=== PATIENT | male | born 1950 | race Two or more races ===

== ENCOUNTER 2021-09-28 19:08 | Emergency (ER) | payer SELFPAY ==
[~2021-09-28] VITALS: Ht 172.7 cm; Wt 72.0 kg
[2021-09-28 19:59] VITALS: BP 121/78
[2021-09-28] MEDS: LIDOCAINE 2%/EPI 1:100,000 20 ML VIAL. INJ ONE (20:00)
[2021-09-28] MEDS: DIPHTH,PERTUSS(ACELL),TET TOX 0.5 ML DISP.SYRIN. VAX IM ONE (20:15)
--- NOTE | 2021-09-28 20:47 | PHYS DOC ---
Past Medical History Past Medical History: Cancer, High Cholesterol, Hypertension Past Surgical History: No Surgical History General Adult EDM: Chief Complaint: LACERATION/AVULSION HPI: HPI: Patient is a 71-year-old male who presents today with a laceration to his right ring finger. Patient states that around 130 this afternoon he was opening a can of dog food and the edge of the lid cut his finger, he said he bandaged it up and went on throughout his day, said he has had to change the dressing multiple times throughout the day because it continues to bleed. Patient presents today for further evaluation and management this because he cannot get the bleeding to stop. Patient denies taking any anticoagulation therapy. Patient states that he is unsure of when his last tetanus shot was. Review of Systems: Review of Systems: Constitutional: Denies fever or chills. [] Eyes: Denies change in visual acuity. [] HENT: Denies nasal congestion or sore throat. [] Respiratory: Denies cough or shortness of breath. [] Cardiovascular: Denies chest pain or edema. [] GI: Denies abdominal pain, nausea, vomiting, bloody stools or diarrhea. [] : Denies dysuria. [] Musculoskeletal: Denies back pain or joint pain. [] Integument: Laceration right fourth finger Neurologic: Denies headache, focal weakness or sensory changes. [] Endocrine: Denies polyuria or polydipsia. [] Lymphatic: Denies swollen glands. [] Psychiatric: Denies depression or anxiety. [] Heart Score: C/O Chest Pain: No Risk Factors: Risk Factors: DM, Current or recent (<one month) smoker, HTN, HLP, family history of CAD, obesity. Risk Scores: Score 0 - 3: 2.5% MACE over next 6 weeks - Discharge Home Score 4 - 6: 20.3% MACE over next 6 weeks - Admit for Clinical Observation Score 7 - 10: 72.7% MACE over next 6 weeks - Early Invasive Strategies Current Medications: Current Medications Medications (Trade) Dose Ordered Sig/Thierno Start Time Stop Time Status Last Admin Dose Admin Diphtheria/ Tetanus/Acell Pertussis (Boostrix) 0.5 ml ONCE ONCE 09/28/21 20:15 09/28/21 20:19 DC Lidocaine/ Epinephrine (LIDOCAINE 2%-EPI 1:100,000 multi-dose) 20 ml 1X ONCE 09/28/21 20:00 09/28/21 20:19 DC 09/28/21 20:00 20 ML Allergies: Allergies: Allergies Coded Allergies Type Severity Reaction Last Updated Verified Penicillins Allergy Unknown 09/28/21 Yes Physical Exam: PE: Constitutional: Well developed, well nourished, no acute distress, non-toxic appearance. [] HENT: Normocephalic, atraumatic, bilateral external ears normal, oropharynx moist, no oral exudates, nose normal. [] Eyes: PERRLA, EOMI, conjunctiva normal, no discharge. [] Neck: Normal range of motion, no tenderness, supple, no stridor. [] Cardiovascular:Heart rate regular rhythm, no murmur [] Lungs & Thorax: Bilateral breath sounds clear to auscultation [] Abdomen: Bowel sounds normal, soft, no tenderness, no masses, no pulsatile masses. [] Skin: Laceration noted over the dorsal aspect of the fourth finger on the right hand, laceration approximately 3 cm extending from the proximal joint to the distal joint, wound is oozing Back: No tenderness, no CVA tenderness. [] Extremities: Right fourth finger patient has full range of motion extension and flexion with the finger, sensory is intact distal to the injury, cap refill is less than 2 seconds. Neurologic: Alert and oriented X 3, normal motor function, normal sensory function, no focal deficits noted. [] Psychologic: Affect normal, judgement normal, mood normal. [] Current Patient Data: Vital Signs: Vital Signs Date Time Temp Pulse Resp B/P (MAP) Pulse Ox O2 Delivery O2 Flow Rate FiO2 09/28/21 19:59 98.0 84 18 121/78 (92) 100 98.0 EKG: EKG: [] Radiology/Procedures: Radiology/Procedures: Indication: Right ring finger laceration Procedure: Patient was placed in the supine position, right ring finger using lidocaine 2% with epinephrine was anesthetized with 3 mL, after appropriately anesthetizing the wound area was cleansed with Betadine solution, wound was irrigated with approximately 120 mL of normal saline, using 5-0 Ethilon 6 interrupted sutures were placed to well approximate the laceration. Finger was dressed with nonadherent dressing and tube gauze. Total repaired wound length: 3cm The patient tolerated the procedure well Complications: [none Course & Med Decision Making: Course & Med Decision Making Pertinent Labs and Imaging studies reviewed. (See chart for details) Patient tolerated suturing of the wound well, patient is instructed to leave the tube gauze in place for the next 24 hours then advised to remove the tube gau ze, patient is to clean the wound twice daily and apply a dressing if the wound continues to ooze. Patient was given a foam aluminum splint to keep the finger straight to help avoid keeping the sutures from straining and possibly being torn out of the wound. Patient can take Tylenol and ibuprofen as needed for pain patient is to return here in 7 to 10 days to have the sutures removed. Dragon Disclaimer: Dragon Disclaimer: This electronic medical record was generated, in whole or in part, using a voice recognition dictation system. Departure Departure Impression: Primary Impression: Finger laceration Qualified Codes: S61.214A - Laceration without foreign body of right ring finger without damage to nail, initial encounter Disposition: HOME / SELF CARE / HOMELESS Condition: STABLE Patient Instructions: Laceration Care, Adult Additional Instructions: Leave the current dressing in place for the next 24 hours then remove being gentle not to disturb the wound you may get wound wet in order to remove the dressing. Keep the wound clean and dry. Cleanse the wound twice daily with mild soap and water, wear foam aluminum splint to help keep the wound straight in order to promote healing, may keep wound dressed if it continues to ooze Tylenol and/or ibuprofen as needed for pain Sutures removed in 7 to 10 days May return here or follow-up with your primary care physician Return to the emergency department sooner should your wound have any signs and symptoms of infection which may be redness, swelling, drainage that is colored in nature, or development of a fever. AMY SNYDER [employer] ARTIST September 28, 2021 20:47
== END 2021-09-28 21:18 | disposition home or self-care (01) ==
LOC: ER 19:08
DX: S61.214A Laceration without foreign body of right ring finger without damage to nail, initial encounter (principal); E78.00 Pure hypercholesterolemia, unspecified; I10 Essential (primary) hypertension; Z88.0 Allergy status to penicillin; W26.8XXA Contact with other sharp object(s), not elsewhere classified, initial encounter; Y93.89 Activity, other specified; Y92.89 Other specified places as the place of occurrence of the external cause; Y99.8 Other external cause status
CPT/HCPCS: 12002; 90471; 90715; 99283; J3490